=== PATIENT | male | born 1985 | race Caucasian/White ===

== ENCOUNTER → 2017-10-26 | Outpatient (CLI) | payer OTHER ==
[~2017-10-26] MED LIST: ANAPROX DS550 MG PO; ASPIRIN81 M1 PO; CLEOCIN HCL150 MG PO; CLINDAMYCIN HC300 MG PO; CLINDAMYCIN150 MG PO; CLINDAMYCIN300 MG PO; DAYPRO600 M1 PO; FLEXERIL5 MG PO; MOTRIN800 MG; MOTRIN800 MG PO; NKHM; PENICILLIN VK500 MG PO; ROBAXIN500 MG PO; ROBAXIN750 MG PO; TRAMADOL HCL50 MG PO; ULTRAM50 MG PO; VICODIN 5/500 505 MG PO; VOLTAREN50 M1 PO; Vicodin 5/500 505 MG PO
== END | disposition home or self-care (01) ==
LOC: RAD 11:25
DX: G89.29 Other chronic pain (principal); M54.5 Low back pain; M54.2 Cervicalgia; M25.571 Pain in right ankle and joints of right foot; M25.471 Effusion, right ankle; Z91.81 History of falling